=== PATIENT | female | born 1980 | race Hispanic/Latino ===

== ENCOUNTER 2018-10-04 14:40 | Emergency (ER) | payer OTHER ==
[2018-10-04 14:51] VITALS: BP 110/68; PULSE 85; RESP 18; TEMP 99.1; O2SAT 100
[2018-10-04 16:35] LABS: BASO # 0.1 K/uL (0.0-0.2); BASO % 1.2 % (0.0-2.0); EOS # 0.1 K/uL (0.0-0.7); HEMOGLOBIN 12.1 g/dL (12.0-16.0); LYMPH # 2.4 K/uL (1.0-4.3); LYMPH % 34.8 % (20.0-40.0); MEAN CELL VOLUME 89.5 fl (81.0-99.0); MEAN CORPUSCULAR HEMOGLOBIN 29.3 pg (27.0-31.0); MEAN CORPUSCULAR HGB CONC 32.8 g/dL (33.0-37.0); MEAN PLATELET VOLUME 8.3 fl (7.2-11.7); MONO # 0.6 K/uL (0.0-0.8); MONO % 8.2 % (0.0-10.0); NEUT # 3.8 K/uL (1.8-7.0); NEUT % 53.8 % (50.0-75.0); RBC 4.12 Mil/uL (3.80-5.20); RED CELL DISTRIBUTION WIDTH 13.6 % (11.5-14.5)
[2018-10-04] MEDS ORDERED: Sodium Chloride 0.9% 50 ML IV ONE (17:11)
[2018-10-04] MEDS ORDERED: Iohexol 300 100 ML IJ ONE (17:11)
[2018-10-04 17:18] LABS: ALB/GLOB RATIO 1.4 (1.0-2.1); ALBUMIN 4.5 g/dL (3.5-5.0); ALT/SGPT 26 U/L (9-52); AST/SGOT 19 U/L (14-36); BARBITURATES, UR NEGATIVE (NEGATIVE); BENZODIAZEPINES, UR NEGATIVE (NEGATIVE); BLOOD UREA NITROGEN 14 mg/dl (7-17); CALCIUM 8.9 mg/dL (8.4-10.2); GFR NON-AFRICAN AMERICAN > 60; OPIATES, UR NEGATIVE (NEGATIVE); PHENCYCLIDINE, UR NEGATIVE (NEGATIVE)
--- NOTE | 2018-10-04 18:11 | CT ---
Date of service: 10/04/2018 PROCEDURE: CT NECK WITH CONTRAST HISTORY: Lump in throat and right sided neck swelling COMPARISON: None available. TECHNIQUE: CT of the neck with intravenous contrast. Coronal and sagittal reformats generated. Intravenous contrast dose: 80 cc Omnipaque 300. Radiation dose: Total exam DLP = 289.17 mGy-cm. This CT exam was performed using one or more of the following dose reduction techniques: Automated exposure control, adjustment of the mA and/or kV according to patient size, and/or use of iterative reconstruction technique. FINDINGS: NASOPHARYNX: Unremarkable. SUPRAHYOID NECK: Unremarkable oropharynx, oral cavity, parapharyngeal space and retropharyngeal space. INFRAHYOID NECK: Unremarkable larynx, hypopharynx, and supraglottic space. Vocal cords intact. MASS: None. GLANDS: Parotid and submandibular glands unremarkable. Normal size thyroid gland, without nodule. LYMPH NODES: Normal. No lymphadenopathy. CERVICAL SPINE: No fracture or focal lesion. VASCULAR STRUCTURES: Unremarkable. OTHER FINDINGS: Complex nodule upper pole right thyroid lobe 1.4 x 2.7 cm. Elective thyroid ultrasound recommended. IMPRESSION: Mass/nodule upper pole right thyroid lobe. Follow-up elective ultrasound recommended.
--- NOTE | 2018-10-04 19:05 | ED PDOC ---
HPI: Chest Pain Time Seen by Provider: 10/04/18 15:45 Chief Complaint (Nursing): Palpitations History Per: Patient Additional Complaint(s): Pt. states for the past 1.5 months she's had a swelling to the front R side of her neck. States that area is slightly painful. Further reports since noticing swelling more she's developed intermittent palpitations that occur when she thinks about the swelling. Also reports feeling anxious when she gets the palpitations. Denies pain with swallowing, fever, SOB, chest pain, hx of DVT or PE, hemoptysis, leg pain, hx of thyroid disorder, rash. Past Medical History Reviewed: Historical Data, Nursing Documentation, Vital Signs Vital Signs: Last Vital Signs Temp 99.1 F 10/04/18 14:48 Pulse 85 10/04/18 14:48 Resp 18 10/04/18 14:48 BP 110/68 10/04/18 14:48 Pulse Ox 100 10/04/18 14:48 - Medical History PMH: Denies: CAD, Diabetes, HTN, Hypercholesterolemia, Hyperlipidemia, Hyperthyroidism, Hypothyroidism - Family History Family History: States: No Known Family Hx - Allergies Allergies/Adverse Reactions: Allergies Allergy/AdvReac Type Severity Reaction Status Date / Time No Known Allergies Allergy Verified 10/04/18 14:48 Review of Systems ROS Statement: Except As Marked, All Systems Reviewed And Found Negative Cardiovascular: Positive for: Chest Pain, Palpitations Physical Exam - Physical Exam Appears: Positive for: Well, Non-toxic, No Acute Distress Skin: Positive for: Normal Color, Warm. Negative for: Rash Eye Exam: Positive for: EOMI, Normal appearance, PERRL ENT: Positive for: Normal ENT Inspection Neck: Positive for: Painless ROM, Supple. Negative for: Normal (small mobile pea sized mass on R side of thyroid) Cardiovascular/Chest: Positive for: Regular Rate, Rhythm. Negative for: Tachycardia Respiratory: Positive for: Normal Breath Sounds. Negative for: Respiratory Dist ress Neurologic/Psych: Positive for: Alert, Oriented (x3), Mood/Affect (calm, cooperative) - Laboratory Results Result Diagrams: 10/04/18 16:32 10/04/18 16:32 Urine POC: Negative - ECG ECG: Positive for: Interpreted By Me ECG Rhythm: Positive for: Sinus Rhythm. Negative for: ST/T Changes O2 Sat by Pulse Oximetry: 100 - Progress ED Course And Treament: CT neck soft tissue: Mass/nodule upper pole right thyroid lobe. Follow-up elective ultrasound recommended. Pt. informed of results. Advised to f/u with Dr. Mckenna (pt's PMD) for further evaluation of thyroid nodule. Pt. verbalized understanding of necessary f/u. Reports no episodes of chest pain or palpitations while in ED. Disposition - Clinical Impression Clinical Impression: Thyroid nodule, Palpitations - Patient ED Disposition Is Patient to be Admitted: No - Disposition Referrals: [facility] [Outside] Disposition: Routine/Home Disposition Time: 18:59 Condition: STABLE Additional Instructions: FOLLOW UP WITH DR. MCKENNA FOR FURTHER EVALUATION RETURN TO ED IMMEDIATELY IF SYMPTOMS WORSEN JONATHAN ROACH, thank you for letting us take care of you today. Your provider was Lilian Marie MD and you were treated for LUMP IN THROAT. The emergency medical care you received today was directed at your acute symptoms. If you were prescribed any medication, please fill it and take as directed. It may take several days for your symptoms to resolve. Return to the Emergency Department if your symptoms worsen, do not improve, or if you have any other problems. Please contact your doctor or call one of the physicians/clinics you have been referred to that are listed on the Patient Visit Information form that is included in your discharge packet. Bring any paperwork you were given at discharge with you along with any medications you are taking to your follow up visit. Our treatment cannot replace ongoing medical care by a primary care provider outside of the emergency department. Thank you for allowing the [facility] team to be part of your care today. If you had an X-Ray or CT scan: A Radiologist will review the ED reading if any change in treatment is needed we will contact you. If you had a blood, urine, or wound culture: It will take several days for the results, if any change in treatment is needed we will contact you. If you had an STI test: It will take 48 hours for the results. Please call after 1 week if you have not heard back. Instructions: Thyroid Nodules, Palpitations (DC) Forms: [facility] (Polish) Print Language: NAMIBIAN
--- NOTE | 2018-10-05 11:05 | CARD ---
APPROVED REPORT Date of service: 10/04/2018 EKG Measurement Heart [id number] <Conclusion> Sinus rhythm with short [place] Otherwise normal ECG
== END 2018-10-04 19:18 | disposition home or self-care (01) ==
LOC: H.ER 14:40
DX: E04.1 Nontoxic single thyroid nodule (principal); R00.2 Palpitations
CPT/HCPCS: 70491; 80053; 80324; 80345; 80346; 80349; 80353; 80358; 80361; 81025; 83992; 84439; 84443; 84481; 84484; 85025; 93005; 99284; Q9967